=== PATIENT | male | born 2000 | race Hispanic/Latino ===

== ENCOUNTER 2022-11-25 23:10 | Emergency (ER) | payer OTHER ==
[2022-11-26] MEDS ORDERED: Morphine 4 MG/ML VIAL ONE (00:14)
[2022-11-26] MEDS ORDERED: Ondansetron PF 4 MG/2 ML Vial ONE ×2 (00:15→07:55)
[2022-11-26 00:45] LABS: #Basophils 0.1 10x3/uL (0.0-0.2); #Eosinphils 0.1 10x3/uL (0.0-0.5); #Monocytes 1.5 10x3/uL (0.0-1.1); #Neutrophils 11.5 10x3/uL (1.5-8.4); %Basophils 0.3 % (0.0-2.0); %Eosinophils 0.8 % (0.0-6.0); %Lymphocytes 16.6 % (18.0-47.0); %Monocytes 9.5 % (0.0-10.0); %Neutrophils 72.3 % (40.0-75.0); Hemoglobin 15.2 g/dL (13.5-17.5); Mean Corpuscular HGB CONC 35.2 g/dL (32.0-36.0); Mean Corpuscular Hemoglobin 32.1 pg (27.0-33.0); Mean Corpuscular Volume 91.3 fl (81.2-95.1); Mean Platelet Volume 11.1 fl (7.4-10.4); Platelet Count 267 10x3/uL (150-450); RBC Distribution Width 11.9 % (11.5-14.5); Red Blood Cell (RBC) Count 4.73 10x6/uL (4.32-5.72); White Blood Cell (WBC) Count 15.8 10x3/uL (3.5-10.5)
[2022-11-26] MEDS ORDERED: Piperacillin/Tazobactam 3.375 GM VIAL ONE ×2 (00:56→08:08)
[2022-11-26 00:58] LABS: ALT (SGPT) 45 U/L (8-55); AST (SGOT) 27 U/L (5-34); Albumin 4.5 g/dL (3.5-5.0); Alkaline Phosphatase 53 U/L (50-130); Anion Gap 14 mmol/L (10-20); BUN (Urea Nitrogen) 13 mg/dL (8.9-20.6); Bilirubin, Total 0.6 mg/dL (0.2-1.2); Calc. Creatinine Clearance 0 mL/min (70-130); Calcium 9.9 mg/dL (7.8-10.44); Carbon Dioxide 26 mmol/L (22-29); Chloride 102 mmol/L (98-107); Estimated GFR 92; Globulin 3.7 g/dL (2.4-3.5); Glucose 99 mg/dL (70-105); Lipase 13 U/L (8-78); Potassium 3.4 mmol/L (3.5-5.1); Protein, Total 8.2 g/dL (6.0-8.3); Sodium 139 mmol/L (136-145)
[2022-11-26 06:24] LABS: SARS-CoV-2 NAA Rapid Test Not Detected (NotDetected)
[2022-11-26 06:26] LABS: Bilirubin Neg (Negative); Blood, Urine Negative (Negative); Clarity Clear (Clear); Glucose, Urine (Dipstick) Normal (Negative); Ketone, Urine Negative (Negative); Leukocyte Negative (Negative); Nitrite Negative (Negative); Protein, Urine (Dipstick) Negative (Neg-Trace); Urobilinogen Normal mg/dL (Less than 2)
[2022-11-26] MEDS ORDERED: EPINEPHrine 1 MG/ML AMP ONE (07:52)
[2022-11-26] MEDS ORDERED: Bupivacaine PF 0.5% 30 ML VIAL ONE (07:52)
[2022-11-26] MEDS ORDERED: Dexamethasone 20 MG/5 ML VIAL ONE (07:55)
[2022-11-26] MEDS ORDERED: Midazolam HCl 2 mg/2 ml Vial ONE (07:55)
[2022-11-26] MEDS ORDERED: Fentanyl 100 MCG/2 ML VIAL ONE ×2 (07:55→09:20)
[2022-11-26] MEDS ORDERED: PROPOFOL 20 ML ONE ×2 (07:55→08:46)
[2022-11-26] MEDS ORDERED: Dexmedetomidine 200 MCG/2 ML VIAL ONE (07:56)
[2022-11-26] MEDS ORDERED: SUGAMMADEX SODIUM 200 MG/2 ML VIAL ONE (07:56)
[2022-11-26] MEDS ORDERED: Lidocaine 2% PF 5 ML VIAL ONE (07:57)
[2022-11-26] MEDS ORDERED: Lidocaine 4% PF 5 ML AMP ONE (07:59)
[2022-11-26] MEDS ORDERED: HYDROcodone/Acetaminophen 5/325 mg Tablet PO PRN ×2 (08:59)
[2022-11-26] MEDS ORDERED: Acetaminophen 325 MG TAB PO PRN (08:59)
[2022-11-26] MEDS ORDERED: HYDROcodone/Acetaminophen 5/325 mg Tablet ONE (11:11)
== END 2022-11-26 12:45 | disposition home or self-care (01) ==
LOC: CSHERS 23:10
DX: K35.80 Unspecified acute appendicitis (principal); Z20.822 Contact with and (suspected) exposure to COVID-19
CPT/HCPCS: 74177; 80053; 81003; 83690; 85025; 88304; 96365; 96375; A4649; C1776; J0171; J1100; J2001; J2250; J2270; J2405; J2543; J2704; J3010; S0020; U0002